=== PATIENT | female | born 1935 | race Caucasian/White ===

== ENCOUNTER 2018-04-14 12:15 | Emergency (ER) | payer OTHER, MEDICARE ==
[~2018-04-14] VITALS: Ht 160 cm; Wt 47.2 kg
[~2018-04-14 12:15] MED LIST: BRINTELLIX20 MG PO; CLOTRIMAZOLE10 MG MM; FOLGARD TABLET1 EAC1 PO; GABAPENTIN 100100 MG PO; HYDROCODON-ACE1 EAC7 PO; HYDROCODONE-AP1 EAC6 PO; LEVOTHYROXIN0.088 MG PO; LOPRESSOR25 PO; MULTIPLE VITAM1 EACH PO; OMEPRAZOLE20 M2 PO; TUMS PO; XANAX 0.25 MG0.25 MG PO
[2018-04-14 12:40] LABS: URINE BILIRUBIN NEGATIVE (Negative); URINE BLOOD 1+ (Negative); URINE CLARITY CLEAR; URINE COLOR YELLOW; URINE GLUCOSE-RANDOM* NEGATIVE (Negative); URINE KETONES NEGATIVE (Negative); URINE LEUKOCYTES-REFLEX NEGATIVE (Negative); URINE NITRITE-REFLEX NEGATIVE (Negative); URINE PROTEIN (DIPSTICK) NEGATIVE (Negative); URINE UROBILINOGEN 0.2 E.U./dl (0.2-1.0)
[2018-04-14 12:54] LABS: BACTERIA-REFLEX None Seen /HPF (None Seen); CASTS None Seen /LPF (None Seen); CRYSTALS None Seen /LPF (None Seen); SQUAMOUS 0-3 Few /LPF (0-3); URINE RBC 3-10 Few /HPF (0-2); URINE WBC-REFLEX None Seen /HPF (0-5)
[2018-04-14 13:32] LABS: HEMATOCRIT 33.5 % (37.0-47.0); HEMOGLOBIN 11.8 gm/dL (12.0-15.0); MCH 34.9 pg (26.0-34.0); MCHC 35.2 g/dL (28.0-37.0); PLATELET COUNT 325 thou/uL (150-400); RBC 3.38 mil/uL (4.20-5.00); WBC 7.5 thou/uL (4.0-11.0)
[2018-04-14 13:41] LABS: CREATININE 0.9 mg/dL (0.6-1.0); POTASSIUM 4.4 mmol/L (3.5-5.1)
[2018-04-14 14:00] LABS: ABSOLUTE NEUTROPHILS 5.6 thou/uL (1.4-8.2); ATYPICAL LYMPHS 4 %; NUCLEATED RBCS 1 /100WBC
== END 2018-04-14 14:10 | disposition home or self-care (01) ==
LOC: ER 12:15
PROVIDERS: Student in an Organized Health Care Education/Training Program
DX: R30.0 Dysuria (principal); I10 Essential (primary) hypertension; Z88.1 Allergy status to other antibiotic agents; Z88.2 Allergy status to sulfonamides; Z88.8 Allergy status to other drugs, medicaments and biological substances

== ENCOUNTER 2018-06-02 22:46 | Inpatient (IN) | payer OTHER, MEDICARE ==
[~2018-06-02] VITALS: Ht 165.1 cm; Wt 40.8 kg
--- NOTE | ~2018-06-02 | EKG ---
[address] [address] ELECTROCARDIOGRAM REPORT Name: PAULJUAN SETHI Room #: 430-P [facility] IN .R.#: [id number] Admission: 06/03/18 Attend Phys: Xander Richey MD Discharge: Date of : 31 Report #: [id number] THIS REPORT FOR: //name// [facility] ED Test Date: 2018-06-02 Test Time: 23:26:33 Pat Name: JUAN SHRESTHA Department: Room: [facility] Gender: F Online Producer: LANDY : 1935 Requested By: Xander Richey Order Number: [id number] MD: Carlos Roberts Measurements Intervals Devers Rate: 93 P: 73 NM: 152 QRS: 47 QRSD: 93 T: 52 QT: 381 QTc: 474 Interpretive Statements Sinus rhythm No significant abnormality Compared to ECG 03/17/2016 17:22:22 No significant changes Electronically Signed On 06-04-2018 8:44:37 WORKDAY CONSULTANT by Carlos Roberts [email or web address] <ELECTRONICALLY SIGNED> By: Carlos Roberts MD, [facility] 06/04/18 0844 25 Carlos Roberts MD, [facility] /EPI
--- NOTE | ~2018-06-02 | HC ---
[facility] [place] [address] CONSULTATION Name: PAULJOSSIEJUAN C Room #: 430-P ADM IN M.R.#: [id number] Admission: 06/03/18 Attend Phys: Xander Richey MD Discharge: Date of : 33 Report #: [id number] THIS REPORT FOR: //name// CC: FAM unknown Xander Richey CHIEF COMPLAINT: Right proximal femur fracture. HISTORY OF PRESENT ILLNESS: This frail 83-year-old female is very, very hard of hearing and therefore difficult to communicate with. It is unclear what her level of activity and independence may have been prior to this point. She apparently fell, injuring the right hip. X-rays reveal a nondisplaced fracture extending from the greater trochanter down toward the intertrochanteric region. It is difficult to determine if this is complete or partial, but appears to be nondisplaced. No other fractures are identified. A CT scan of the pelvis and hip are pending at this time. I have attempted to discuss this with the patient, but with great difficulty as she is so hard of hearing that we really cannot communicate effectively. It is unclear to me what her level of ambulation activity has been prior to this. At this point, she is comfortable when resting, but is uncomfortable with movement of the right hip or palpation over the right hip. The remainder of the objective exam seems to be normal. X-ray reveals a fracture, which is nondisplaced involving the greater trochanter extending slightly distally and medially. I have tried to contact with the patient's family and we will discuss treatment options. At this point, the fracture appears to be stable and nonsurgical management may be a reasonable option. I would like to see CT scan to see what the extent of the fracture may be. If there is extension toward the medial cortex, which might be unstable, then consideration of TFN nail fixation would be appropriate. I will follow her and consider surgery tomorrow if necessary. <ELECTRONICALLY SIGNED> By: Jc Coon MD 06/04/18 1150 [id number] Jc Coon MD /nt
[2018-06-02 22:55] VITALS: BP 132/69
[2018-06-03 03:19] VITALS: BP 130/66
[2018-06-03 03:30] VITALS: BP 130/66
[2018-06-03 04:21] VITALS: BP 131/78
[2018-06-03 04:24] LABS: HEMATOCRIT 34.6 % (37.0-47.0); HEMOGLOBIN 11.5 gm/dL (12.0-15.0); MCH 32.9 pg (26.0-34.0); MCHC 33.3 g/dL (28.0-37.0); RBC 3.5 mil/uL (4.20-5.00); RDW 14.3 % (10.5-14.5)
[2018-06-03 04:29] LABS: CALCIUM 8.7 mg/dL (8.5-10.1); CREATININE 1.1 mg/dL (0.6-1.0); POTASSIUM 4.3 mmol/L (3.5-5.1)
[2018-06-03 06:19] LABS: URINE BILIRUBIN NEGATIVE (Negative); URINE BLOOD 2+ (Negative); URINE CLARITY CLEAR; URINE COLOR YELLOW; URINE GLUCOSE-RANDOM* NEGATIVE (Negative); URINE KETONES NEGATIVE (Negative); URINE NITRITE-REFLEX NEGATIVE (Negative); URINE PROTEIN (DIPSTICK) NEGATIVE (Negative); URINE UROBILINOGEN 0.2 E.U./dl (0.2-1.0)
[2018-06-03 06:20] LABS: URINE LEUKOCYTES-REFLEX 1+ (Negative)
[2018-06-03 06:31] LABS: AMORPHOUS URATES Moderate /LPF (None Seen); BACTERIA-REFLEX 1-9 Few /HPF (None Seen); CASTS None Seen /LPF (None Seen); SQUAMOUS None Seen /LPF (0-3); URINE RBC 3-10 Few /HPF (0-2); URINE WBC-REFLEX 6-15 Few /HPF (0-5)
[2018-06-03 07:49] VITALS: BP 147/69
[2018-06-03 16:39] VITALS: BP 124/62
[2018-06-03 20:00] VITALS: BP 150/84
[2018-06-04 04:50] VITALS: BP 156/90
[2018-06-04 06:27] LABS: HEMATOCRIT 34.1 % (37.0-47.0); HEMOGLOBIN 11.8 gm/dL (12.0-15.0); MCH 33.9 pg (26.0-34.0); MCHC 34.5 g/dL (28.0-37.0); MCV 98.3 fL (80.0-100.0); RBC 3.47 mil/uL (4.20-5.00); RDW 13.9 % (10.5-14.5); WBC 6.5 thou/uL (4.0-11.0)
[2018-06-04 06:40] LABS: CALCIUM 8.3 mg/dL (8.5-10.1); CREATININE 0.9 mg/dL (0.6-1.0); POTASSIUM 3.9 mmol/L (3.5-5.1)
[2018-06-04 07:30] VITALS: BP 157/80
[2018-06-04 19:27] VITALS: BP 143/63
[2018-06-05 03:51] VITALS: BP 131/64
[2018-06-05 06:08] LABS: HEMATOCRIT 33.6 % (37.0-47.0); HEMOGLOBIN 11.4 gm/dL (12.0-15.0); MCH 33.4 pg (26.0-34.0); MCHC 33.8 g/dL (28.0-37.0); MCV 98.7 fL (80.0-100.0); PLATELET COUNT 301 thou/uL (150-400); RBC 3.41 mil/uL (4.20-5.00); RDW 14.3 % (10.5-14.5); WBC 6.8 thou/uL (4.0-11.0)
[2018-06-05 06:24] LABS: CALCIUM 7.9 mg/dL (8.5-10.1); CREATININE 0.7 mg/dL (0.6-1.0)
[2018-06-05 07:29] VITALS: BP 131/72
[2018-06-05 08:36] LABS: ABSOLUTE NEUTROPHILS 4.5 thou/uL (1.4-8.2)
[2018-06-05 08:37] LABS: ANISOCYTOSIS SLIGHT; ATYPICAL LYMPHS 3 %; BURR CELLS OCCASIONAL; POIKILOCYTOSIS SLIGHT
[2018-06-05 15:34] VITALS: BP 136/66
[2018-06-05 20:00] VITALS: BP 133/65
[2018-06-06 04:30] VITALS: BP 140/72
[2018-06-06 06:07] LABS: ALBUMIN 2.5 g/dL (3.4-5.0); CALCIUM 7.7 mg/dL (8.5-10.1); CREATININE 0.9 mg/dL (0.6-1.0); POTASSIUM 4.2 mmol/L (3.5-5.1)
[2018-06-06 08:02] VITALS: BP 147/74
[2018-06-06] MEDS ORDERED: TRAMADOL 50 MG50 MG PO (09:33)
== END 2018-06-06 16:16 | DRG 682 ==
LOC: ER 22:46 → 4E 06-03 02:05 → EROBS 06-03 02:05 → 4E 06-03 03:59
PROVIDERS: Hospitalist; Internal Medicine; Nurse Practitioner Acute Care
DX: N17.0 Acute kidney failure with tubular necrosis (principal); S72.111A Displaced fracture of greater trochanter of right femur, initial encounter for closed fracture; E87.1 Hypo-osmolality and hyponatremia; E46 Unspecified protein-calorie malnutrition; Z68.1 Body mass index [BMI] 19.9 or less, adult; F32.9 Major depressive disorder, single episode, unspecified; F41.9 Anxiety disorder, unspecified; M62.84 Sarcopenia; K21.9 Gastro-esophageal reflux disease without esophagitis; I12.9 Hypertensive chronic kidney disease with stage 1 through stage 4 chronic kidney disease, or unspecified chronic kidney disease; N18.9 Chronic kidney disease, unspecified; H91.90 Unspecified hearing loss, unspecified ear; E03.9 Hypothyroidism, unspecified; W18.30XA Fall on same level, unspecified, initial encounter; Y93.89 Activity, other specified; Y92.89 Other specified places as the place of occurrence of the external cause; Y99.8 Other external cause status; Z90.49 Acquired absence of other specified parts of digestive tract; Z98.891 History of uterine scar from previous surgery; Z79.899 Other long term (current) drug therapy; Z88.1 Allergy status to other antibiotic agents; Z88.2 Allergy status to sulfonamides; Z88.8 Allergy status to other drugs, medicaments and biological substances
CPT/HCPCS: 10084

== ENCOUNTER 2018-06-06 13:29 | Inpatient (IN) | payer OTHER, MEDICARE ==
[~2018-06-06] VITALS: Ht 165.1 cm; Wt 49.7 kg
--- NOTE | ~2018-06-06 | PLAN ---
[facility] [place] [address] REHAB UNIT PLAN OF CARE Name: JUAN SHRESTHA Barbara Room #: 505-P ADM IN M.R.#: [id number] Admission: 06/06/18 Attend Phys: Jc Bueno MD Discharge: Date of : 33 Report #: [id number] THIS REPORT FOR: //name// CC: Jc Bueno [facility] unknown DATE OF SERVICE: 06/09/2018 The patient was seen earlier this morning. She is very hard of hearing. Temperature 36.7, pulse 74, respirations 16, blood pressure 124/70. No calf swelling. She is working in therapies with transfers, min assist. Gait, min assist 20 feet with a front-wheeled walker. She is allowed weightbearing as tolerated. In occupational therapy, she is max assist for lower body dressing. In speech therapy, she does have nncp-iw-gsiolyyd comprehensive deficits. She also moderate cognitive deficits. ASSESSMENT: 1. Right hip fracture, comminuted being handled nonsurgically. 2. Hyponatremia. 3. Dizziness with apparent benign positional postural vertigo. 4. Hypertension. 5. Icapi-yi-zohdntr renal insufficiency. 6. Sarcopenia. 7. Protein-calorie malnutrition. 8. Hard of hearing. PLAN: The overall plan of care is based on the preadmission screen, post-admission physician evaluation and information garnered from therapy assessments. 1. Estimated length of stay is probably 2-3 weeks. 2. Medical prognosis is reasonably good. 3. Anticipated interventions includes the interdisciplinary acute inpatient rehabilitation program with PT, OT and speech working with her rehab nursing assisting regarding medication management, skin care prophylaxis, bowel and bladder issues and nursing education. Case management is involved as well as the interdisciplinary acute rehabilitation team and the end user consultant physicians. 4. Anticipated functional outcomes would be for the patient to become modified independent with transfers, mobility and ADLs utilizing a walker. Also to improve as far as cognition. 5. Discharge destination would be for her to get back to her home setting. She does have supportive family that we will need to increase their involvement. 6. Expected therapy by discipline includes PT, OT and speech 1 hour per day [address] [address] REHAB UNIT PLAN OF CARE Name: JUAN SHRESTHA Room #: 505-P [facility] IN [facility].#: [id number] Admission: 06/06/18 Attend Phys: Jc Bueno MD Discharge: Date of : 33 Report #: [id number] each five days a week throughout the duration of the acute inpatient rehabilitation stay. By: 1320 0037 Jc Bueno MD /nt
[~2018-06-06 13:29] MED LIST changes: +TRAMADOL 50 MG50 MG PO
--- NOTE | 2018-06-06 18:06 | NUR ---
REPORT RECEIVED FROM KLEBER DALY. PATIENT ARRIVED TO UNIT APPROX 1630. PATIENT A/O X4. [place]. ANXIOUS. C/O PAIN WITH MOVEMENT IN RIGHT HIP. DENIES PAIN AT REST. TRANSFERED X2 ASSIST PIVOT WC<>BSC. PATIENT ATE DINNER IN DINING ROOM. PATIENT'S DAUGHTER JIM AT BEDSIDE. ADMISSION HISTORY AND ASSESSMENT COMPLETED BY MALIKA BREWSTER. MEDICATION ORDERS FAXED TO PHARMACY, VERIFIED AGAINST DISCHARGE SUMMARY. CONSULTS CALLED. FALL PRECAUTIONS IN PLACE. PATIENT ROUNDED ON HOURLY. WILL CONTINUE TO MONITOR.
[2018-06-06 19:00] VITALS: BP 121/74
--- NOTE | 2018-06-07 00:24 | NUR ---
PT ALERT AND ORIENTED X 4, FORGETFUL. TRANSFERRED TO BED AT HS WITH MAX ASSIST X 1. PT VERY ANXIOUS WITH TRANSFERS. PT C/O PAIN IN HER RIGHT KNEE. TRAMADOL GIVEN AT HS AND PT SLEEPING UPON REASSESSMENT. BED ALARM ON FOR SAFETY. PT APPEARS TO BE SLEEPING ON HOURLY ROUNDS.
[2018-06-07 04:33] LABS: CALCIUM 8.3 mg/dL (8.5-10.1); CREATININE 0.8 mg/dL (0.6-1.0); POTASSIUM 4.3 mmol/L (3.5-5.1)
[2018-06-07 05:53] LABS: HEMATOCRIT 34.8 % (37.0-47.0); HEMOGLOBIN 11.9 gm/dL (12.0-15.0); MCH 33.6 pg (26.0-34.0); MCHC 34.2 g/dL (28.0-37.0); MCV 98.2 fL (80.0-100.0); RBC 3.54 mil/uL (4.20-5.00); RDW 13.8 % (10.5-14.5); WBC 6.6 thou/uL (4.0-11.0)
[2018-06-07 07:30] VITALS: BP 144/84
--- NOTE | 2018-06-07 09:45 | NUR ---
ASSUMED CARE OF PT AT 0715. PT IS A&OX4 WITH FORGETFULNESS. IS ANXIOUS WITH TRANSFERRING, TENSES UP, GRABS ONTO CAREGIVER FIRMLY, & RESIST. PT STATED, "IT'S BECAUSE OF THE PAIN". THRERAPUETIC COMMUNICATION PROVIDED. PT REASSURED THAT [facility]RTS HAS FIRM MASS SPECTROSCOPIST, IS THERE TO HELP, TO RELAX, & TAKE HER TIME. AFTER A TIME PT RELAXES, STRAIGHTENS UP, TAKES STEPS & DOES WELL. NEEDS REASSURANCE & PATIENCES. TRANSFERS WELL WITH 1 ASSIST & GB TO BEDSIDE COMMODE. THIS NURSE FEELS SAFER WITH 2 ASSIST D/T TO ANXIETY. FALL PRECAUTIONS & HOURLY ROUNDING CONTINUED. PT IS STABLE. IS ON ROOM AIR. PT REPORTS PAIN IN RLE WITH MOVEMENT THAT IS BEING MANAGED WITH PAIN MEDS. LABS & VITALS REVIEWED. PT IS CURRENTLY WORKING WITH PT. WILL CONTINUE TO MONITOR.
--- NOTE | 2018-06-07 12:21 | NUR ---
team meeting, discussed dcp, recommendations re-team . [facility] for cognitive deficits. pt was living in assisted living at [place], per pt manage own medication, facility provided meals, uses walker and cane. no steps has to do. skips lunch because it is to close to breakfast. no longer drives vehicle.
[2018-06-07 20:44] VITALS: BP 132/59
--- NOTE | 2018-06-08 00:19 | NUR ---
PT ALERT AND ORIENTED X 4, FORGETFUL. PT VERY ANXIOUS TONIGHT. OBSESSING OVER TV NOT WORKING RIGHT AND IT IS WORKING FINE. UP TO BSC WITH ASSIST X 1-2. PT YELLS OUT AT TIMES ESPECIALLY WHEN TRANSFERRING. C/O PAIN IN RLE. TRAMADOL GIVEN AT HS. PT REQUESTING XANAX FOR ANXIETY. RADHA BARBOUR NP NOTIFIED WITH ORDER RECEIVED FOR ONE TIME DOSE. MED GIVEN ORDERED. BED ALARM ON FOR SAFETY. PT CHECKED ON HOURLY ROUNDS.
[2018-06-08 07:21] VITALS: BP 139/70
--- NOTE | 2018-06-08 07:53 | NUR ---
ASSUMED CARE OF PT AT 0715, A&0X3-4, FORGETFUL. REPORTS OF 2PERSON MAX ASSIST. REPORTS OF EXTREME ANXIETY PRIOR SHIFT. WILL ASK FOR XANAX TO BE AVAILABLE NEEDED OR BID. RA, DIMINISHED LS, ENCOURAGED DEEP SLOW INHALATIONS/EXHALATIONS. SHOWED HER HOW TO TO USE CALL LIGHT WITH SUCCESSFUL RETURN DEMO. MED FOR ANXIETY AND PAIN MEDICATION PROPHYALACTICALLY FOR PT. ENCOURAGED PT TO USE CALL LIGHT FOR ANY NEEDS
[2018-06-08 20:15] VITALS: BP 121/61
--- NOTE | 2018-06-09 01:08 | NUR ---
ASSUMED CARE OF PT AT 1915. PT ALERT AND ORIENTED X4, VERY ANXIOUS BUT COOPERATIVE. CALLS OUT WHEN MOVED. PIVOT TRANSFERRED TO WHEELCHAIR THEN TO TOILET. C/O HIP PAIN, RELIEVED WITH TRAMADOL. HAS APPEARED TO BE SLEEPING WHEN CHECKED ON HOURLY ROUNDS. FALL PRECAUTIONS IN PLACE.
[2018-06-09 09:18] VITALS: BP 124/70
--- NOTE | 2018-06-09 10:07 | NUR ---
ASSUMED CARE AT 0700. PATIENT ALERT AND ORIENTED X3. PATIENT VERY [place]. PATIENT AUTOMOTIVE TIRE TESTER ARE EQUAL. PATIENT IS WBAT ON LEFT LEG. PATIENT IS VERY ANXIOUS ABOUT TRANSFERS. PATIENT IS UP WITH ASSIST OF 1-2 STAFF WITH WALKER AND GAIT BELT TO THE BATHROOM. FALL AND SAFETY PROTOCOLS IN PLACE. DENIES PAIN AT THIS TIME. CONTINUES TO PROGRESS SLOWLY TOWARDS D/C GOALS. WILL CONTINUE TO MONITER.
[2018-06-09 20:15] VITALS: BP 124/65
--- NOTE | 2018-06-10 00:57 | NUR ---
PT ALERT AND ORIENTED X 4, FORGETFUL. UP TO BSC WITH ASSIST X 1. PT C/O GENERALIZED PAIN. TRAMADOL GIVEN AT HS. BED ALARM ON FOR SAFETY. PT CHECKED ON HOURLY ROUNDS.
[2018-06-10 07:35] VITALS: BP 114/68
--- NOTE | 2018-06-10 09:35 | NUR ---
ASSUMED CARE AT 0700. PATIENT IS ALERT AND ORIENTEDX3. PATIENT IS [place]. PATIENT IS WBAT ON LEFT, FULL WEIGHT BEARING ON RIGHT. LUNGS ARE CLEAR. ABD IS SOFT WITH BSX4. PATIENT IS UP WITH ASSIST OF 1 TO W/C TO BATHROOM. PATIENT USES GRAB BARS APPROPIATELY. FALL AND SAFETY PROTOCOLS IN PLACE. DENIES ANY PAIN AT THIS TIME. PATIENT CONTINUES TO PROGRESS TOWARDS D/C GOALS SLOWLY. WILL CONTINUE TO MONITER.
--- NOTE | 2018-06-10 17:01 | HC ---
[facility] [place] [address] CONSULTATION Name: JUAN SHRESTHA Room #: 505-P [facility] IN M.R.#: [id number] Admission: 06/06/18 Attend Phys: Jc Bueno MD Discharge: Date of : 33 Report #: [id number] THIS REPORT FOR: //name// CC: Jc Bueno [facility] unknown DATE OF SERVICE: 06/09/2018 NEUROBEHAVIORAL STATUS EXAMINATION ATTENDING PHYSICIAN: Jc Bueno MD POLITICAL ADVISOR: Black Burton, PhD CLINICAL PRESENTATION: The patient is an 83-year-old female, admitted to the rehabilitation unit at [facility] for a comprehensive inpatient rehabilitation program to improve functional mobility, activities of daily living and self-care and mental status secondary to deficits from a right hip fracture. She carries diagnoses that include hyponatremia, dizziness/apparent benign positional postural vertigo, hypertension, hypothyroidism, functional mobility and activities of daily living deficits, urinary frequency and dysuria, acute renal insufficiency on chronic kidney disease, sarcopenia, protein-calorie malnutrition and gastroesophageal reflux disease. A complete description of her medical condition and history along with medications can be found in her medical record. Neuropsychological consultation was requested to provide assistance in the assessment of cognitive and emotional status and to provide recommendations and services. The patient reports having complete recall of events surrounding her fall and not having hit her head. She indicates getting dizzy and subsequently unable to hold on to a door frame to maintain balance when she fell. Her residence has been in an assisted living placement for the last several years. The patient has 3 children. One child lives within the [place] area. She is a high school graduate and was primarily a homemaker throughout her life. TECHNIQUES UTILIZED: Clinical interview, review of medical records, staff consultation and behavioral observation, mini mental status exam 2 standard version and clock drawing. EXAMINATION FINDINGS: The patient was alert and cooperative with the assessment. She accurately described events surrounding her admission. There is no evidence of aphasia. Her thoughts are logical and goal oriented. There is no evidence of thought disorder. She is severely hard of hearing. Her mood is variabie with increased irritability. [facility] [address] [place] [address] CONSULTATION Name: JUAN SHRESTHA Room #: 505-P [facility] IN M.R.#: [id number] Admission: 06/06/18 Attend Phys: Jc Bueno MD Discharge: Date of : 33 Report #: [id number] She reports anxiety and concern about the well-being of her daughter. Apparently, her daughter has an alcohol abuse disorder and is unreliable. The patient acknowledges subjective depression and anxiety. She also reports difficulty with sleep and has had a weight loss, although she reports her appetite is within normal limits. Her performance on the MMSE 2 brief version was at the 3rd percentile, which is in the borderline range. She was 3/3 for initial registration, 5/5 for orientation to time, 4/[address], and 0/3 for immediate recall of 3 items after a brief time delay and distraction. Her performance on the MMSE 2 standard version was in the mild range of impairment with a raw score of 23, T score of 36 and percentile rank of 8. She was 2/5 for serial 7's, 2/2 for naming, 1/1 for repetition, 3/3 for auditory comprehension, 1/1 for ability to read and follow a single command. She could write a sentence and copy a design. Clock drawing was within normal limits. The patient is showing some mild deficits in immediate recall and sustained concentration. She is severely hard of hearing, which may affect overall cognitive functioning. Additionally, her mood appears irritable and depressed. DIAGNOSTIC IMPRESSION: Neurocognitive disorder (unspecified) -- extent to be determined with intermittent irritability likely in the mild to moderate range. Unspecified anxiety disorder with depression. RECOMMENDATIONS: Her mood is depressed and anxiety regarding her recovery and the well being of her daughter is elevated. The patient may benefit from use of an antidepressant medication rather than alprazolam. Additionally, she is taking gabapentin, and along with alprazolam can have an adverse effect on cognition. The use of relaxation techniques, written compensatory strategies and hearing augmentation will also lessen sources of anxiety. Thank you very much for allowing me to provide the consultation on this patient. <ELECTRONICALLY SIGNED> By: Black Burton, PhD 06/10/18 1701 1551 21 Black Burton, PhD /nt
[2018-06-10 19:32] VITALS: BP 111/55
--- NOTE | 2018-06-11 03:19 | NUR ---
ASSUMED CARE OF PT AT 1915. PT ALERT AND ORIENTED X4. VERY ANXIOUS THROUGH THE EVENING, ESPECIALLY WHEN TRANSFERRING TO BSC. 2 STAFF MEMBERS PRESENT FOR TRANSFER DUE TO PT ANXIETY. C/O PAIN X1, RELIEVED WITH PO TRAMADOL. HAS APPEARED TO BE SLEEPING WHEN CHECKED ON HOURLY ROUNDS. BED ALARM ON.
[2018-06-11 05:34] LABS: HEMATOCRIT 35.2 % (37.0-47.0); HEMOGLOBIN 11.9 gm/dL (12.0-15.0); MCH 33.4 pg (26.0-34.0); MCHC 33.7 g/dL (28.0-37.0); MCV 99.1 fL (80.0-100.0); PLATELET COUNT 425 thou/uL (150-400); RBC 3.55 mil/uL (4.20-5.00); RDW 14.3 % (10.5-14.5); WBC 5.7 thou/uL (4.0-11.0)
[2018-06-11 05:35] LABS: CALCIUM 8.6 mg/dL (8.5-10.1); CREATININE 0.9 mg/dL (0.6-1.0); POTASSIUM 4.4 mmol/L (3.5-5.1)
[2018-06-11 08:08] LABS: ABSOLUTE NEUTROPHILS 3.2 thou/uL (1.4-8.2)
[2018-06-11 09:00] VITALS: BP 118/79
--- NOTE | 2018-06-11 18:30 | NUR ---
PT IS ALERT XS 4 BUT VERY HARD OF HEARING. GETS UP TO BEDSIDE COMMODE. WITH ASSIST XS 1. HAD LARGE BOWEL MOVEMENT TODAY. SOFT FORMED BROWN. NO PAIN OR RESP DISTRESS AT TIME.
[2018-06-11 19:32] VITALS: BP 120/66
--- NOTE | 2018-06-12 04:53 | NUR ---
ASSUMED CARE OF PT APPROX 2030HRS. PT A&O X4 ABLE TO MAKE BASIC NEEDS KNOWN. PT IS [place]. C/O RLE PAIN EFFECTIVELY CONTROLLED VIA PRN TRAMADOL PRN. PT CALM AND COOPERATIVE. MEDS WHOLE PO WITH THIN LIQUIDS. CONT OF B&B ASSIST X1 WITH TRANSFERS. SCDS ON. RA.
--- NOTE | 2018-06-12 15:26 | NUR ---
ASSUMED CARE AT 0700. PATIENT IS ALERT AND ORIENTED X3. PATIENT IS [place]. ANXIOUS, C/O PAIN WHEN SHE STANDS UP BUT DENIES PAIN WHEN SHE LAYS DOWN. PATIENT IS WBAT ON LEFT, FULL WEIGHT BEARING ON RIGHT. LUNGS ARE CLEAR. ABD IS SOFT WITH BSX4. HAD MODERATE FORMED BM TODAY. APPETITE FAIR ATE 50% FOR EACH MEALS. PATIENT IS UP WITH ASSIST OF 1 TO W/C TO BATHROOM. PATIENT USES GRAB BARS APPROPIATELY. OFFERED SUPPORTIVE CARE. ENCOURAGED PT TO VOICE HER NEEDS. TOOK MEDS WITHOUT DIFFICULTY. FALL AND SAFETY PROTOCOLS IN PLACE. DENIES ANY PAIN AT THIS TIME. PATIENT CONTINUES TO PROGRESS TOWARDS D/C GOALS SLOWLY. WILL CONTINUE TO MONITOR.
[2018-06-12 19:49] VITALS: BP 119/71
--- NOTE | 2018-06-13 02:59 | NUR ---
PT ASSESSMENT COMPLETED AND VSS. MEDS GIVEN ORDERED AND WELL TOLERATED. FALL PRECAUTIONS IN PLACE. UP TO BSC WITH ASST/GAIT/WALKER. VOIDING MODERATE AMOUNT OF URINE. ANXIETY MEDICATION AT BEDTIME WORKING WELL. WILL CONTINUE TO MONITOR FREQUENTLY.
[2018-06-13 07:30] VITALS: BP 127/69
--- NOTE | 2018-06-13 15:51 | NUR ---
ASSUMED CARE AT APPROX 0715. PATIENT A/O X4. ANXIOUS. NEEDING FREQUENT QUES AND REDIRECTION. UP X1 ASSIST. MEDICATED FOR PAIN PRIOR TO THERAPY. VSS. PATIENT FORGETFUL, UNABLE TO RECALL CORRECT MED TIMES OR DOSE OF AFTERNOON MEDS, PATIENT STATES SHE WAS MANAGING MEDICATION HERSELF PRIOR TO ADMISSION, DAUGHTER DORIS CONFIRMED THIS. PATIENT STATED SHE WANTED DORIS TO BE PRIMARY CONTACT REGARDING DISCHARGE PLAN. FALL PRECAUTIONS IN PLACE. WILL CONTINUE TO MONITOR.
[2018-06-13 19:11] VITALS: BP 128/64
--- NOTE | 2018-06-14 01:42 | NUR ---
assumed care at approx 1900 evening 06/13. pt lying in bed with head of bed elevated dozing off and on at change of shift.pt up to bathroom with 1 assist before hs. pt given xanax per her request and pt appears to be sleeping soundly with hourly rounding checks. bed alarm on and call light in reach. will continue to monitor.
[2018-06-14 07:40] VITALS: BP 132/77
--- NOTE | 2018-06-14 10:03 | NUR ---
ASSUMED PT CARE AT 0700. ASSESSED PT AT 0740. PT LYING IN BED AWAKE. DENIES PAIN AT THIS TIME IF NOT MOVING. ALERT/ORIENTED X4, EXTREMELY HARD OF HEARING. ASSESSMENT IS CHARTED. NO NEW CONCERNS AT THIS TIME. WILL CONTINUE WITH PLAN OF CARE.
--- NOTE | 2018-06-14 12:38 | NUR ---
team meeting, recommendation,: 06/22/18 discuss with pt and family rt assisted living vs private duty. possible 09/01 initial supervision, medication management.
--- NOTE | 2018-06-14 13:23 | H ---
[facility] [place] [address] HISTORY AND PHYSICAL Name: PAULJOSSIEJUAN C Room #: 505-P ADM IN M.R.#: [id number] Admission: 06/06/18 Attend Phys: Jc Bueno MD Discharge: Date of : 33 Report #: [id number] THIS REPORT FOR: //name// CC: Jc Bueno [facility] unknown DATE OF SERVICE: 06/06/2018 HISTORY AND PHYSICAL/POST-ADMISSION PHYSICIAN EVALUATION: HISTORY OF PRESENT ILLNESS: The patient is an 83-year-old white female previously living in independent living apartment when she was getting something from her closet felt dizzy and fell. She was admitted to [facility] on 06/03/2018. She was noted to have a right hip fracture, noted originally to be a proximal femur fracture. The x-ray revealed a nondisplaced fracture involving the greater trochanter extending slightly distally and medially toward the intertrochanteric region. CT was obtained by Orthopedics and the patient is currently being handled nonsurgically with the hope to try to avoid surgery, but understand the possibility of fracture displacement. The patient's course has further been complicated by hyponatremia. She was given saline. Urine osmolality, monitored. Sodium was 130, currently 131. She also is noted to have the dizziness, which is thought to most likely be benign positional vertigo and she has had meclizine available p.r.n. She is being monitored regarding hypertension with home medications as well as her hypothyroidism. She has not been admitted for an acute in-hospital inpatient rehabilitation stay. PAST MEDICAL HISTORY: Includes anxiety, depression, hypertension, sections, hypothyroidism, cholecystectomy. ALLERGIES: CLARITHROMYCIN, ERYTHROMYCIN BASE, LISINOPRIL, SULFA. MEDICATIONS: Please see the full medication listing. This includes vitamins, herbals, and supplements. SOCIAL HISTORY: Lives alone, independent living, was independent in ADLs, did her own laundry, meals and cleaning are provided at the facility. She did utilize a 4-wheeled walker premorbidly. Has involved in supportive daughter. REVIEW OF SYSTEMS: No current complaints of chest pain, shortness of breath or abdominal discomfort. Denies fever, chills. No constipation, no nausea. She does have some right hip discomfort as expected. Dizziness appears to be improving. No headache, numbness, tingling. No psychiatric issues have been noted, although she does have the prior history of depression. HABITS: Nonsmoker, limited past history of ETOH usage. [facility] [address] [place] [address] HISTORY AND PHYSICAL Name: JUAN SHRESTHA Room #: 505-P [facility]#: [id number] Admission: 06/06/18 Attend Phys: Jc Bueno MD Discharge: Date of : 33 Report #: [id number] PHYSICAL EXAMINATION: GENERAL: The patient is a pleasant, small statured rather thin 83-year-old white female in no obvious distress. She is somewhat hard of hearing. HEENT: Otherwise appeared to be benign. Cranial nerves are grossly intact. VITAL SIGNS: Temperature 98.8, pulse 99, respirations 20, blood pressure 121/74. Facies are symmetric. CHEST: Sounded clear to auscultation. CARDIOVASCULAR: Regular rate and rhythm. ABDOMEN: Bowel sounds positive, nontender. GENITOURINARY AND RECTAL: Deferred. EXTREMITIES: She has functional range of motion of both upper extremities. Strength is grade 4-/5. DTRs are trace to 1. Right hip. She does have some discomfort with gentle attempted range of motion. There is no focal calf swelling. Strength is probably a grade 4- to 3+/5 proximally and more of a grade 4- distally. Left lower extremity revealed functional range of motion, strength is grade 4-/5. Tone is intact. No distal sensory decrease. Sit to stand has been max assist with gait 20 feet mod assist with a front-wheeled walker. ASSESSMENT: This is an 83-year-old white female with the following problem list: 1. Right hip fracture, comminuted being handled nonsurgically. 2. Hyponatremia. Given saline, osmolality was checked. Internal Medicine assisting. 3. Dizziness/apparent benign positional postural vertigo. She has been on meclizine and we are continuing to monitor in this regard. 4. Hypertension with current management. 5. Hypothyroidism. 6. Functional mobility and activities of daily living deficits. 7. Urinary frequency with dysuria. 8. Noted acute renal insufficiency on chronic kidney disease. Noted to likely be some renal clearing of medications, which exacerbate dizziness. Hydration continuing. Geriatric service is involved. 9. Sarcopenia. She scores positive on the SARC-F screen. Encouraging high protein supplements. 10. Protein-calorie malnutrition. On supplements in this regard. 11. The Gerontology service is also assisting regarding the patient's dizziness and trying to decrease multiple medications that can contribute to that. 12. Gastroesophageal reflux disease. Gerontology recommended stopping the PPI, which can lead to atypical fracture and osteoporosis. PLAN: The patient is admitted for acute in-hospital inpatient rehabilitation. From a post-admission physician evaluation perspective, there are no relevant changes since the preadmission screening. Please see the above review of prior and current medical and functional conditions and comorbidities. Please see the [facility] [address] [place] [address] HISTORY AND PHYSICAL Name: JUAN SHRESTHA Room #: 505-P [facility] IN ..#: [id number] Admission: 06/06/18 Attend Phys: Jc Bueno MD Discharge: Date of : 33 Report #: [id number] previous and current functional status. As far as risk of complications, the patient has multiple medical comorbidities as noted above. We need to watch her as far as the hip healing as well as she is at risk for possible displacement. Hopefully, conservative management will be successful for her. The initial plan of care involves the interdisciplinary acute inpatient rehabilitation program with goal of maximizing the patient's functional independence, so she can hopefully return back to her prior living situation. Measurable functional goals would be for her to become modified independent with transfers, mobility and ADLs at the walker level. Prognosis is reasonably good with estimated length of stay probably the next 10-14 days or so. Potential barriers would include her multiple medical comorbidities and decreased functional status. The patient meets diagnostic criteria for an acute in-hospital inpatient rehabilitation stay. She meets medical necessity criteria and we will have the fashion consultant physicians continue to follow while she is on the rehab thomas. She does have the tolerance for therapies and has appropriate discharge goals back to the home setting. <ELECTRONICALLY SIGNED> By: Jc Bueno MD 06/14/18 1323 [id number] Jc Bueno MD /nt
--- NOTE | 2018-06-14 14:08 | NUR ---
Nutrition: pt seen due to consult received to assure adequate intake. RD nutrition assessment completed 06/13. Po has been fair ~50% of meals. No significant weight changes. Po appears to be improving further as pt consumed 75-100% of meals today. Additionally pt drinks Ensure typically BID. Documented sarcopenia. Increased protein needs have been reviewed/ encouraged with pt. Pt agreeable. RD will continue to monitor pt.
--- NOTE | 2018-06-14 15:39 | NUR ---
PT DOING WELL THIS SHIFT. PARTICIPATING IN THERAPY AND TOLERATING WELL. REPORTS NO PAIN UNLESS MOVING. REFUSES PAIN MEDICATION AT THIS TIME. ASSISTED PT TO BATHROOM REQUIRING MINIMAL ASSISTANCE. PT VOICES CONCERN THAT SHE WON'T BE ABLE TO DO THIS AT HOME. ASSURED PT ARRANGEMENT WILL BE MADE TO MAKE SURE SHE IS SAFE WHEN DISMISSED. OTHERWISE NO NEW CONCERNS AT THIS TIME.
--- NOTE | 2018-06-14 15:47 | NUR ---
FAXED CLINICAL UPDATE TO [facility]. LEFT MSG WITH THAT UPDATE HAS BEEN SENT. DCP TO FOLLOW.
[2018-06-14 19:30] VITALS: BP 122/66
--- NOTE | 2018-06-15 02:52 | NUR ---
CALLS APPROPRIATELY FOR ASSIST TO BATHROOM. MIGHT BECOME A STANDBY ASSIST IF SHE COULD EVER GET AWAY FROM HER FEAR OF FALLING, FOR NOW SHE IS CONTACT GUARD ASSIST. VERY HARD OF HEARING AND CAN ONLY HEAR STAFF WITH ASSIST OF HEADPHONES
[2018-06-15 04:47] LABS: HEMATOCRIT 32.2 % (37.0-47.0); MCH 33.7 pg (26.0-34.0); MCHC 34.1 g/dL (28.0-37.0); MCV 98.9 fL (80.0-100.0); PLATELET COUNT 447 thou/uL (150-400); RBC 3.26 mil/uL (4.20-5.00); RDW 14.4 % (10.5-14.5); WBC 6.6 thou/uL (4.0-11.0)
[2018-06-15 05:06] LABS: CALCIUM 8.5 mg/dL (8.5-10.1); CREATININE 0.9 mg/dL (0.6-1.0); MAGNESIUM 2.1 mg/dL (1.8-2.4); POTASSIUM 4.7 mmol/L (3.5-5.1)
[2018-06-15 05:32] LABS: PLATELET ESTIMATE INCREASED
[2018-06-15 07:30] VITALS: BP 127/60
--- NOTE | 2018-06-15 10:43 | NUR ---
ASSUMED CARE AT 0700. PATIENT. PATIENT IS ALERT AND ORIENTED X3. PATIENT IS VERY [place], AND FORGETFUL. PATIENT MEDEIROS'S. MANAGER USER EXPERIENCE ARE EQUAL. LUNGS ARE CLEAR. ABD IS SOFT WITH BSX4. PATIENT IS UP IN CHAIR FOR BREAKFAST. FALL AND SAFETY PROTOCOLS IN PLACE. C/O PAIN IN HER RIGHT HIP AT 0600. PATIENT WAS MEDICATED WITH PRN PAIN MED. UP TO THE BATHROOM WITH ASSIST OF 1 STAFF WITH GAIT BELT AND WALKER AND ASSIST OF 1 STAFF. WILL CONTINUE TO MONITER.
[2018-06-15 19:40] VITALS: BP 113/53
--- NOTE | 2018-06-15 23:46 | NUR ---
PT ALERT AND ORIENTED X 4, FORGETFUL. AMB TO BR WITH WALKER AND ASSIST X 1 WITH SOME DIFFICULTY. PAINFUL RIGHT HIP WITH AMBULATION. TRAMADOL GIVEN AT HS PER PT REQUEST. OPTIFOAM DRESSING C/D/I TO BACK. BED ALARM ON FOR SAFETY. PT CHECKED ON HOURLY ROUNDS.
[2018-06-16 07:53] VITALS: BP 130/54
--- NOTE | 2018-06-16 14:24 | NUR ---
ASSUMED CARE AT 0700. REPORTS SLEPT GOOD LAST NIGHT. PATIENT IS ALERT AND ORIENTED X4. PATIENT IS VERY [place], AND FORGETFUL. REASSESSMENT PER CHART. YOUTH AGENT ARE EQUAL. LUNGS ARE CLEAR. ABD IS SOFT WITH BSX4. LAST BM WAS YESTERDAY. PATIENT IS UP IN CHAIR FOR BREAKFAST. OFFERED SUPPORTIVE CARE. VSS ON RA. MEDS GIVEN ORDERED. TOOK MEDS WITHOUT DIFFICULTY. C/O INDIGESTION. NOTIFIED DR. CASTREJON AND OBTAINED ORDER FOR PRN PATRICK Q 6HR PRN. FALL AND SAFETY PROTOCOLS IN PLACE. C/O PAIN IN HER RIGHT HIP WHEN WALKING. GAVE PRN TRAMADOL PRIOR THERAPY. ABLE TO TOLERATE PAIN WELL. PT WALKS BETTER TODAY. UP TO THE BATHROOM WITH ASSIST OF 1 STAFF WITH GAIT BELT AND WALKER AND ASSIST OF 1 STAFF. HER GOALS IS TO CONTINUE TO WORK WITH THERAPISTS TO GET STRONGER BEFORE D/C HOME NEXT WEEK.WILL CONTINUE TO MONITOR.
[2018-06-16 19:10] VITALS: BP 111/51
--- NOTE | 2018-06-17 01:59 | NUR ---
assumed care at approx 1900 evening 06/16. pt lying in bed with head of bed elevated dozing off and on. pt appropriate and cooperative. pt took hs meds with no problems. pt assist up to bathroom before falling asleep. pt appears to be sleeping soundly with hourly rounding checks. bed alarm on and call light in reach. will continue to monitor.
[2018-06-17 07:15] VITALS: BP 134/69
--- NOTE | 2018-06-17 09:22 | NUR ---
ASSUMED CARE AT 0700. PATIENT IS ALERT AND ORIENTED X4. PATIENT IS [place]. PATIENT MEDEIROS'S. GANG SUPERVISOR ARE EQUAL. LUNGS ARE CLEAR. ABD IS SOFT WITH BSX.4 NO EDEMA NOTED IN LOWER EXTREMITIES. UP IN W/C FOR MEALS. FALL AND SAFETY PROTOCOLS IN PLACE. DENIES ANY PAIN AT THIS TIME. CONTINUES TO PROGRESS SLOWLY TOWARDS D/C GOALS. WILL CONTINUE TO MONITER.
[2018-06-17 20:33] VITALS: BP 113/45
--- NOTE | 2018-06-18 03:55 | NUR ---
PT AMBULATING TO BATHROOM WITH ASSIST X1 AND IS TOLERATING FAIR. TRAMADOL PROVIDING PAIN RELIEF. RESTING COMFORTABLY. NO NEEDS VOICED. CALL LIGHT WITHIN REACH. WILL CONTINUE TO PROVIDE FREQUENT OBSERVATION.
[2018-06-18 07:30] VITALS: BP 128/62
--- NOTE | 2018-06-18 07:41 | NUR ---
0745 ASSUMED CARE AT 0700. PATIENT IS ALERT AND ORIENTED X3. PATIENT IS VERY [place]. PATIENT MALA'S. PATIENT HAS RIGHT HIP FX, THAT IS NON-DISPLACED. PATIENT IS UP WITH ASSIST OF 1 STAFF AND GAIT BELT AND WALKER TO THE BATHROOM. PATIENT IS UP IN CHAIR FOR MEALS. PATIENT IS ON CALORIE COUNT. LUNGS ARE CLEAR, ABD IS SOFT WITH BSX4. FALL AND SAFETY PROTOCOLS IN PLACE. DENIES ANY PAIN AT THIS TIME. CONTINUES TO PROGRESS TOWARDS D/C GOALS. WILL CONTINUE TO MONITER.
--- NOTE | 2018-06-18 13:30 | NUR ---
ZANE RETURNED CALL TO GIUSEPPE RT VOICE MESSAGE THAT [place] IS WANTING PT TO COME BACK AL RESPECT STAY. CM LEFT MESSAGE FOR GIUSEPPE TO CALL CM TEAM BACK. MEAN WHILE VOICE MESSAGE FROM PT DAUGHTER CARMELLA WHO STATED " I WILL BE OUT OF HOSPITAL THE DAY MOM IS GOING TO BE DC WELL"/CARMELLA. WILL CONT FOLLOWING NEEDED FOR DC NEEDS.
[2018-06-18 20:45] VITALS: BP 122/59
--- NOTE | 2018-06-19 03:00 | NUR ---
assumed care at approx 1900 evening 06/18. pt sitting up in recliner at change of shift resting and talking on phone. pt assisted up to bathroom before hs. pt appropriate and cooperative, hard of hearing. pt given hs meds and appears to be sleeping soundly with hourly rounding checks. bed alarm on and call light in reach. will continue to monitor.
[2018-06-19 07:55] VITALS: BP 136/87
--- NOTE | 2018-06-19 11:01 | NUR ---
ASSUMED CARE AT APPROX 0715. PATIENT A/O X4. ANXIOUS. HARD OF HEARING. NEEDING FREQUENT VERBAL CUES, FOLLOWS COMMANDS APPROPIRATELY. MAKES NEEDS KNOWN. UP X1 ASSIST GB AND WALKER TO BATHROOM. FALL PRECAUTIONS IN PLACE. PT COMPLAINED OF DIZZINESS, MECLIZINE PRN GIVEN. VSS. PATIENT UP TO CHAIR FOR MEALS. WILL CONTINUE TO MONITOR.
[2018-06-19 19:19] VITALS: BP 101/53
--- NOTE | 2018-06-20 00:24 | NUR ---
PT ALERT AND ORIENTED X 4. PT DENIES PAIN OR DISCOMFORT. XANAX GIVEN AT HS PER PT REQUEST. BED ALARM ON FOR SAFETY. PT APPEARS TO BE SLEEPING ON HOURLY ROUNDS.
[2018-06-20 07:20] VITALS: BP 143/68
--- NOTE | 2018-06-20 10:32 | NUR ---
ASSUMED CARE AT APPROX 0715. PATIENT A/O X4. [place]. ANXIOUS, XANAX GIVEN PER ORDERS. VSS. PATIENT DENIES DIZZINESS THIS AM, DENIES PAIN DENIES PAIN AT THIS TIME. WILL CONTINUE TO REASSESS WITH THERAPY. PATIENT UP X1 ASSIST GB AND WALKER SBA. ANTICIPATED D/C DATE IS THURSDAY 06/22. FALL PRECAUTIONS IN PLACE. PATIENT ROUNDED ON HOURLY. WILL CONTINUE TO MONITOR.
--- NOTE | 2018-06-20 14:40 | NUR ---
Patient participated in community reintegration on 06/20/18 with Physical Therapy. Refer to documentation by PT.
--- NOTE | 2018-06-20 15:05 | NUR ---
CM RECEIVED PHONE CALL FROM GIUSEPPE ARCE WHO STATED "GOING TO HAVE NURSE COME AND EVAL DEWAYNE BUT HER DAUGHTER CALLED AND LEFT MESSAGE THAT SHE IS IN HOSPITAL SO DEWAYNE WILL NEED TO COME BACK INTO ASSISTED LIVING RESPECT STAY"/GIUSEPPE. REF IMPORTANCE OF HAVING NURSE COME FOR EVAL TODAY RT TEAM MEETING IS TOMORROW, SO COULD DISCUSS CHANGES NEEDED TO MEET DEWAYNE NEEDS. " WILL TRY TO HAVE NURSE COME TODAY"/ GIUSEPPE. CM PASSED ON INFORMATION TO 5N TEAM.
[2018-06-20 19:08] VITALS: BP 117/54
--- NOTE | 2018-06-21 01:05 | NUR ---
PT ALERT AND ORIENTED X 4, FORGETFUL. BP 117/54 AT HS. METOPROLOL HELD PER PARAMETERS. PT DENIES PAIN OR DISCOMFORT. XANAX GIVEN AT HS PER PT REQUEST FOR ANXIETY. BED ALARM ON FOR SAFETY. PT APPEARS TO BE SLEEPING ON HOURLY ROUNDS.
[2018-06-21 07:25] VITALS: BP 134/59
--- NOTE | 2018-06-21 08:57 | NUR ---
ASSUMED CARE AT 0700. PATIENT IS ALERT AND ORIENTED X4. PATIENT IS VERY [place]. PATIENT MEDEIROS'S. PATIENT RIGHT HIP REMAINS PAINFUL WHEN SHES UP AND WALKING ON IT. LUNGS ARE CLEAR. ABD IS SOFT WITH BSX4. NO EDEMA NOTED IN L.E.'S. FALL AND SAFETY PROTOCOLS IN PLACE. PATIENT IS UP TO THE BR WITH ASSIST OF 1 STAFF AND GAIT BELT , AND WALKER. FALL AND SAFETY PROTOCOLS IN PLACE. PAIN ABOVE. CONTINUES TO PROGRESS SLOWLY TOWARDS D/C GOALS. WILL CONTINUE TO MONITER.
--- NOTE | 2018-06-21 13:15 | NUR ---
TEAM MEETING, RECOMMENDATION: KVNGP 06/22/18 ASSISTED RESPECT STAY AT [facility] PRIOR TO GOING BACK TO [facility] ( PT,OT,ST,SW). WILL NEED FWW, NOT SAFE PER THERAPY WITH 4 WHEELED WALKER. PT AGREE CONT TO AGREE WITH KVNGP,CM LEFT MESSAGE WITH DAUGHTER CARMELLA AND GIUSEPPE KLINE AT [facility]
[2018-06-21 15:23] VITALS: BP 134/59
--- NOTE | 2018-06-21 16:25 | NUR ---
DCP [facility] SPOKE WITH GIUSEPPE IN ADM. AND THEY SET UP TRANSPORT FOR 0900 06/22/18. PT. WILL DISCHARGE TO [facility]. WITH [facility]. FAXED REFERRAL TO [facility] SPOKE WITH ADM. ARCENIO AND SHE RECEIVED REFERRAL AND WILL REVIEW. DCP TO FOLLOW.
[2018-06-21 19:20] VITALS: BP 118/52
--- NOTE | 2018-06-22 03:05 | NUR ---
Assumed care of pt at 1915. Pt alert and oriented x4. Pt reports feeling anxious about discharge later today. Ambulates to bathroom with standby assist using gait belt and walker. Xanax given po at HS. Denies pain, nausea or dypsnea. Has appeared to be sleeping when checked on hourly rounds. Fall precautions in place.
[2018-06-22 07:15] VITALS: BP 117/57
[2018-06-22] MEDS ORDERED: COLACE100 MG PO (08:01)
[2018-06-22] MEDS ORDERED: ANTIVERT25 MG PO (08:01)
[2018-06-22] MEDS ORDERED: CELEXA20 MG PO (08:01)
--- NOTE | 2018-06-22 09:05 | NUR ---
ASSUMED CARES AT 0700. PT AWAKE, ALERT AND ORIENTED *4, CONFUSED AT TIMES AND TUSCARORA. C/O MILD PAIN WITH ACTIVITY 0N HIP AND THIGH RIGHT. VITALS STABLE. BP LOWERING MEDICATIONS HELD FOR SBP<130. SKIN REMAINS INTACT. 1+ BLE EDEMA, PT ENCOURAGED TO ELEVATE EXTREMITY WHEN NOT IN THERAPY. UP WITH 1 PERSON TRANSFERS AND AMBULATING TOLERATED. PT READY FOR DC TO [facility] BY 0900. CALLED AND LEFT MESSAGE FOR NURSING TO CALL FOR REPORT.
--- NOTE | 2018-06-22 09:43 | NUR ---
PT. DISCHARGING TODAY TO [facility]. FAXED DC ORDERS/SUMMARY TO FACILITY AND SPOKE WITH GIUSEPPE IN ADM. SHE RECEIVED DC ORDERS. TRANSPORTATION [facility]IA [facility] ARRANGED FOR 0900. FAMILY NOTIFIED PER SW AND UNIT NOTIFIED AND CHART COPY PER U.S. RN TO CALL REPORT TO [phone].
--- NOTE | 2018-06-22 11:52 | NUR ---
PT. DISCHARGING TODAY TO [facility]. FAXED DC ORDERS TO FACILITY AND SPOKE WITH GIUSEPPE IN ADM, AND SHE RECEIVED DC ORDERS/SUMMARY. TRANSPORTATION SET UP VIA [facility] AT 0900. FAMILY NOTIFIED PER SW AND UNIT NOTIFIED OF TIME OF TRANSPORT AND CHART COPY PER U.S. RN TO CALL REPORT TO [phone].
== END 2018-06-22 10:30 | disposition home health service (06) | DRG 536 ==
LOC: ENTRNSPT 06-22 10:03 → EDTRNSPTSTS 06-22 10:06
PROVIDERS: Nurse Practitioner; ADMIT Physical Medicine & Rehabilitation
DX: S72.144A Nondisplaced intertrochanteric fracture of right femur, initial encounter for closed fracture (principal); E87.1 Hypo-osmolality and hyponatremia; E46 Unspecified protein-calorie malnutrition; Z68.1 Body mass index [BMI] 19.9 or less, adult; N17.9 Acute kidney failure, unspecified; E03.9 Hypothyroidism, unspecified; Z60.2 Problems related to living alone; H81.10 Benign paroxysmal vertigo, unspecified ear; R35.0 Frequency of micturition; R30.0 Dysuria; I12.9 Hypertensive chronic kidney disease with stage 1 through stage 4 chronic kidney disease, or unspecified chronic kidney disease; N18.9 Chronic kidney disease, unspecified; M62.84 Sarcopenia; K21.9 Gastro-esophageal reflux disease without esophagitis; Z90.49 Acquired absence of other specified parts of digestive tract; Z88.2 Allergy status to sulfonamides; Z88.8 Allergy status to other drugs, medicaments and biological substances; Z88.1 Allergy status to other antibiotic agents; Y93.89 Activity, other specified; Y99.8 Other external cause status; F41.8 Other specified anxiety disorders; H91.93 Unspecified hearing loss, bilateral; Z98.891 History of uterine scar from previous surgery; W18.39XA Other fall on same level, initial encounter; Y93.01 Activity, walking, marching and hiking; Y92.098 Other place in other non-institutional residence as the place of occurrence of the external cause
CPT/HCPCS: 10112

== ENCOUNTER 2018-10-17 19:41 | Inpatient (IN) | payer OTHER, MEDICARE ==
[~2018-10-17] VITALS: Ht 160 cm; Wt 45.4 kg
[~2018-10-17 19:41] MED LIST changes: +ANTIVERT25 MG PO; +CELEXA20 MG PO; +COLACE100 MG PO
[2018-10-17 20:34] LABS: HEMATOCRIT 35.2 % (37.0-47.0); HEMOGLOBIN 12.2 gm/dL (12.0-15.0); MCH 34.2 pg (26.0-34.0); MCHC 34.6 g/dL (28.0-37.0); MCV 98.9 fL (80.0-100.0); RBC 3.55 mil/uL (4.20-5.00); RDW 14.5 % (10.5-14.5); WBC 9.9 thou/uL (4.0-11.0)
[2018-10-17 20:42] LABS: CALCIUM 9.1 mg/dL (8.5-10.1); POTASSIUM 4.3 mmol/L (3.5-5.1)
[2018-10-17 20:46] LABS: APTT 22.7 Seconds (24.5-32.8)
[2018-10-17 22:00] VITALS: BP 160/78
[2018-10-17 22:15] VITALS: BP 137/63
--- NOTE | 2018-10-17 22:16 | NUR ---
REPORT RECEIVED FROM MALIKA OTT FROM ED, PER REPORT PT VERY CONFUSED, DOUGLAS, UNABLE TO FIND HOME MED LIST. DR. VEGA WAS ALREADY NOTIFIED IN ED AT 2126.
--- NOTE | 2018-10-18 00:37 | NUR ---
PT WAS AND ADMIT FROM THE ED. ARRIVED ON THE FLOOR VIA CART, SCREAMED WHEN TRANSFERED TO THE BED. GUARDING LEFT LEG, ABLE TO PUT IN SCDS SLEEVE, ATTEMPTED TO PUT FRACTURE BEDPAN BUT IS IN SO MUCH PAIN, GOT ORDER FOR ISIDRO CATH, INSERTED AND DRAINING TO YELLOW URINE. ON ROOM AIR, TOOK MEDS WITH NO DIFFICULTY. EXTREMELY HARD OF HEARING, DAUGHTER WHICH IS THE DPOA IN THE ROOM AND IS SPENDING THE NIGHT. SHE SAID PT HAS HEARING AID BUT EVEN WITH IT PT STILL VERY HARD OF HEARING. BED ALARM ON, NPO FOR POSSIBLE SURGERY, SKIN INTACT, MONITORED.
[2018-10-18 02:00] VITALS: BP 142/66
--- NOTE | 2018-10-18 03:37 | NUR ---
RESTING GOOD, PAIN CONTROLED BY FENT 50 MCG IV NEEDED, ISIDRO PATENT DRAINING TO MATEUSZ URINE, NPO FOR POSSIBLE SURGERY, SCDS ON, DAUGHTER HERE FOR THE NIGHT, HOURLY ROUNDING, MONITORED.
[2018-10-18 05:29] VITALS: BP 133/67
--- NOTE | 2018-10-18 07:20 | EKG ---
[address] [address] ELECTROCARDIOGRAM REPORT Name: JUAN SHRESTHA Room #: 430-P [facility] IN .R.#: [id number] ������������������ Admission: 10/17/18 ������������������ Attend Phys: Maritza Earl Discharge: ������������������ Date of : 31 Report #: [id number] ����������������������������������������������������������������� [id number] THIS REPORT FOR: //name// [facility] ED Test Date: 2018-10-17 Test Time: 19:54:28 Pat Name: JUAN SHRESTHA Department: Room: 430 Gender: F Purchaser: paul : 1935 Requested By: René Monroy Order Number: [id number] MD: Carlos Roberts Measurements Intervals Curtice Rate: 82 P: 47 VA: 155 QRS: 17 QRSD: 82 T: 43 QT: 413 QTc: 483 Interpretive Statements Sinus rhythm Normal tracing Compared to ECG 06/02/2018 23:26:33 No significant changes Electronically Signed On 10-18-2018 7:20:48 CDT by Carlos Roberts [email or web address] ��������������������������������������������� <ELECTRONICALLY SIGNED> ���������������������������������������� By: Carlos Roberts MD, [facility] ��������������������������������������������� 10/18/18 07 53 53 Carlos Roberts MD, FACC /EPI
[2018-10-18 07:57] VITALS: BP 120/58
--- NOTE | 2018-10-18 11:17 | NUR ---
Nutrition: pt seen due to low BMI 17.7. Admit with Left hip fracture pending surgery. Dtr reports current wt of 100# is error and pt has been weighing 112# recently at dr office. Re-weighed at 118#. UBW range 100-110# and pt with recent gain. Usual appetite is good, eats 3 meals/day. Has drank ensure in the past. Will follow for diet advance post surgery. Consider low risk.
--- NOTE | 2018-10-18 13:01 | NUR ---
REPORT GIVEN TO SENIOR SUITES NURSE, PATIENT MOVING TO ROOM 227. ALL BELONGINGS PACKED AND SENT WITH PATIENT.
--- NOTE | 2018-10-18 13:18 | NUR ---
CALLED CONSULT TO 5TH FLOOR / DR MEDINA AT THIS TIME.
[2018-10-18 16:56] VITALS: BP 118/53
--- NOTE | 2018-10-18 17:20 | NUR ---
PT ARRIVED BACK FROM SURGERY AT 1638 ALERT XS 2 WITH SOME CONFUSION. LUNGS CTA O2 SAT =95% 2L/NC VS= 97.7 16 77 118/58. FAMILY AT BEDSIDE. PT TO HAVE REGULAR DIET. D51/2 NS AT 100/HR. PT HAD NAILING LEFT HIP 3 SITES WITH DRESSINGS INTACT
[2018-10-18 20:14] VITALS: BP 117/59
--- NOTE | 2018-10-19 04:29 | NUR ---
Assumed care of pt at 1900. Pt a&ox2. Very forgetful and very e[place]. Prn pain meds administered. IV antibiots administered. Dressing on left hip clean and intact. SCD's in place. Fall precautions in place. Will continue to monitor.
[2018-10-19 04:55] LABS: CALCIUM 7.5 mg/dL (8.5-10.1); CREATININE 1.1 mg/dL (0.6-1.0); POTASSIUM 5.1 mmol/L (3.5-5.1)
[2018-10-19 06:04] LABS: HEMATOCRIT 22.2 % (37.0-47.0); MCH 35.6 pg (26.0-34.0); MCHC 35.4 g/dL (28.0-37.0); MCV 100.4 fL (80.0-100.0); RBC 2.21 mil/uL (4.20-5.00); RDW 14.3 % (10.5-14.5); WBC 9.5 thou/uL (4.0-11.0)
[2018-10-19 06:10] LABS: HEMOGLOBIN 7.9 gm/dL (12.0-15.0)
[2018-10-19 06:24] VITALS: BP 117/59
[2018-10-19 08:20] VITALS: BP 98/54
--- NOTE | 2018-10-19 10:29 | NUR ---
Assumed pt care at 7am.Pt in bed resting without c/o.Assessment completed.vss. Pt was very hard of hearing.Wanted lip balm,one given per pt request.Pt tolerated breakfast and pain med given prior to therapy.Will continue to monitor.
--- NOTE | 2018-10-19 15:15 | NUR ---
INITIAL ASSESSMENT: Pt evaluated for d/c planning needs. Reviewed chart and spoke with nurse, pt and pt's daughter. Pt is very [place]. Dtr said that pt is not a candidate for hearing aids and that she would only be helped with cochlear implants. Pt is a [facility] resident [facility]. Pt uses walker for ambulation and has had [facility] in the past. Pt has been accepted to [facility], with possible admission on Monday. Spoke with dtr. If pt does not go to [facility], daughter would want pt to go to [facility]. Will remain available to assist as needed.
--- NOTE | 2018-10-19 16:27 | NUR ---
PATIENT WAS SEEN THIS DATE BY SHO LEAL NP WITH DR. MEDINA. PATIENT WAS ASSESSED AND IS APPROPRIATE FOR [facility]. PATIENT CAN ADMIT TO REHAB WHEM MEDICALLY STABLE. ANTICIPATE ADMISSION FOR OCTOBER 21 OR . WRAPPER OFF INFORMED. [facility] IS LIAISON TOP STITCHER FOR WEEKEND. IF PATIENT IS TO ADMIT TO REHAB OVER WEEKEND, PLEASE CALL [facility] AT [phone] TO FACILITATE AMISSION.
[2018-10-19 17:32] VITALS: BP 126/50
[2018-10-19 19:50] VITALS: BP 102/48
--- NOTE | 2018-10-19 22:48 | O ---
[facility] [place] [address] OPERATIVE REPORT Name: PAULJOSSIEJUAN C Room #: 430-P ADM IN M.R.#: [id number] Admission: 10/17/18 ������������������ Attend Phys: Maritza Earl Discharge: ������������������ Date of : 31 Report #: [id number] THIS REPORT FOR: //name// CC: FAM unknown Maritza Earl [facility] DATE OF SERVICE: 10/18/2018 SERVICE: Orthopedics. FACILITY: [place]. SURGEON: René Woodruff MD. HUMAN RESOURCE ADVISOR: Roxanna Avila NP. PREOPERATIVE DIAGNOSIS: Displaced left intertrochanteric hip fracture. POSTOPERATIVE DIAGNOSIS: Displaced left intertrochanteric hip fracture. PROCEDURE: Intramedullary nail fixation of left intertrochanteric hip fracture. COMPLICATIONS: None. DRAINS: None. SPECIMENS: None. ANESTHESIA: General. ESTIMATED BLOOD LOSS: 300 mL. FINDINGS: Coronado and Nephew 40 cm x 11.5 mm 130 degree InterTan nail with 95 x 90 proximal compression screws and 45 mm 5.0 distal locking screw. HISTORY AND INDICATIONS: The patient is an 83-year-old female who was ambulating without her walker, took a fall, sustained a comminuted left intertrochanteric hip fracture. She was admitted last night. It was indicated for surgical treatment. The risks, benefits, alternatives and indications for surgery were reviewed in detail with her daughter who gave full informed consent. She understood the risks are extensive up to and including mortality. PROCEDURE IN DETAIL: After left lower extremity was correctly identified as the operative extremity, the patient was taken to the operating room, and general anesthesia was induced without complication. She was transferred to the [facility] [address] [place] [address] OPERATIVE REPORT Name: JUAN SHRESTHA Barbara Room #: 430-P [facility] IN ..#: [id number] Admission: 10/17/18 ������������������ Attend Phys: Maritza Earl Discharge: ������������������ Date of : 33 Report #: [id number] operating table, padded appropriately. Prophylactic antibiotics were administered at appropriate time. She was placed in bilateral traction boots. Timeout procedure performed. The left leg was prepped and draped in standard sterile fashion. Time-out procedure was performed. Under C-arm fluoroscopy, a reduction maneuver had been performed prior to prepping and draping and placed the leg into abduction, external rotation and then placed traction across the fracture in the extremity ultimately reducing it with internal rotation and to about 30 degrees of internal rotation and abduction. This provided good cortical alignment. A 1 inch incision was made based proximal to the greater trochanter. Dissection was taken down to the trochanter and a guide pin was placed in the trochanter and then it was advanced under fluoroscopy into the proximal femur across the fracture site. Under multiple planes of fluoroscopy, the femoral cortex was then sequentially prepared and reamed up to a 13 mm reamer to allow placement of the largest diameter nail available. We had measured it to 40 cm in length. The nail was then advanced across the fracture in the appropriate position. It was confirmed to be intramedullary on multiple planes of x-ray. The outrigger was used to then place the proximal interlocking screw and set the initial position, but it looked like it was coming to high and then the pin was redirected, but it was more posterior than I would have like, so I backed it up, adjusted the nail position within the proximal femur and then advanced the guide pin into the femoral head with care taken to ensure appropriate tip apex distance. The femur was then prepared with the drills in a typical fashion and then the lag screw was placed proximally followed by the locking compression screw just distal. This provided good compression across the fracture and it appeared to improve the overall reduction. The C-arm was then oriented distally and a perfect kaltag technique was used to place the interlocking screw and then final x-rays were taken after it was confirmed that the hardware was all in appropriate position. The fracture was well aligned. The deep wounds were copiously irrigated. The skin was closed with 2-0 Vicryl and followed by skin jonatan. A sterile dressing was applied. The patient was awakened from anesthesia and taken to recovery room in stable condition. There were no complications. All counts were recorded as correct. ��������������������������������������������� <ELECTRONICALLY SIGNED> ���������������������������������������� By: René Woodruff MD ��������������������������������������������� 10/19/18 2248 [id number] René Woodruff MD /nt
[2018-10-20 04:37] VITALS: BP 106/46
[2018-10-20 05:07] LABS: MCH 34.7 pg (26.0-34.0); MCHC 34.7 g/dL (28.0-37.0); MCV 99.9 fL (80.0-100.0); RBC 1.93 mil/uL (4.20-5.00); RDW 14.7 % (10.5-14.5)
[2018-10-20 05:20] LABS: HEMATOCRIT 19.3 % (37.0-47.0); HEMOGLOBIN 6.7 gm/dL (12.0-15.0)
[2018-10-20 08:27] VITALS: BP 112/45
[2018-10-20 11:14] VITALS: BP 107/47; BP 115/50
--- NOTE | 2018-10-20 11:23 | NUR ---
RECEIVED PT APPROC 0700. AWAKE RESTING IN BED. VERY ANXIOUS THIS AM ABOUT GETTING BLOOD. C/O PAIN MANAGED BY MEDS ORDERED. NO NV. SANNA TO MARTÍN. DRESSING CDI. TRANSFUFING 1 UNIT OF BLOOD AT THIS TIME. PT TOLERATING WELL. WILL CONT. TO MONITOR.
[2018-10-20 16:53] VITALS: BP 106/49
[2018-10-20 19:11] LABS: HEMATOCRIT 23.8 % (37.0-47.0); HEMOGLOBIN 8.3 gm/dL (12.0-15.0)
[2018-10-20 20:05] VITALS: BP 112/50
--- NOTE | 2018-10-21 03:08 | NUR ---
Assumed care of pt at 1900. Pt anxious and very hard of hearing. Dressing on left hip clean and intact. Dee catheter in place. Prn pain meds administered. Fall precautions in place. Will continue to monitor.
[2018-10-21 04:24] LABS: HEMATOCRIT 21.3 % (37.0-47.0); HEMOGLOBIN 7.4 gm/dL (12.0-15.0); MCH 33.4 pg (26.0-34.0); MCHC 34.6 g/dL (28.0-37.0); MCV 96.4 fL (80.0-100.0); RBC 2.21 mil/uL (4.20-5.00); RDW 16.2 % (10.5-14.5); WBC 8.6 thou/uL (4.0-11.0)
[2018-10-21 05:45] VITALS: BP 112/52
[2018-10-21 07:47] VITALS: BP 105/44
[2018-10-21] MEDS ORDERED: CYCLOBENZAPRINE5 MG PO (10:41)
[2018-10-21] MEDS ORDERED: XARELTO10 MG PO (10:42)
[2018-10-21] MEDS ORDERED: HYDROCODONE-AP1 EAC6 PO (10:43)
--- NOTE | 2018-10-21 11:27 | NUR ---
ASSESMENT COMPLETED. VSS. PT CALM THIS AM. NO NOTED SOA. NO NV. PT RESTING IN BED APPEARS COMFORTABLE. DC ORDERS RECEIVED. LEFT MESSAGE TO DTR TO UPDATE. FALL PREC. INTACT. WILL CONT. TO MONITOR.
[2018-10-21 15:24] VITALS: BP 110/52
== END 2018-10-21 16:47 | DRG 481 ==
LOC: ER 19:41 → 4E 21:05 → EROBS 21:05 → 4E 22:20
PROVIDERS: Emergency Medicine; Orthopaedic Surgery Sports Medicine; ADMIT Hospitalist
PROC: 0QS706Z Reposition Left Upper Femur with Intramedullary Internal Fixation Device, Open Approach (ICD-10-PCS; principal; 2018-10-18)
PROC: 30233N1 Transfusion of Nonautologous Red Blood Cells into Peripheral Vein, Percutaneous Approach (ICD-10-PCS; 2018-10-20)
DX: S72.142A Displaced intertrochanteric fracture of left femur, initial encounter for closed fracture (principal); E87.1 Hypo-osmolality and hyponatremia; D62 Acute posthemorrhagic anemia; H91.90 Unspecified hearing loss, unspecified ear; I10 Essential (primary) hypertension; K21.9 Gastro-esophageal reflux disease without esophagitis; E03.9 Hypothyroidism, unspecified; H81.10 Benign paroxysmal vertigo, unspecified ear; F03.90 Unspecified dementia, unspecified severity, without behavioral disturbance, psychotic disturbance, mood disturbance, and anxiety; F41.9 Anxiety disorder, unspecified; F32.9 Major depressive disorder, single episode, unspecified; W18.39XA Other fall on same level, initial encounter; R29.6 Repeated falls; Y93.89 Activity, other specified; Y92.099 Unspecified place in other non-institutional residence as the place of occurrence of the external cause; Y99.8 Other external cause status; Z87.81 Personal history of (healed) traumatic fracture; Z90.49 Acquired absence of other specified parts of digestive tract; Z98.891 History of uterine scar from previous surgery; Z79.899 Other long term (current) drug therapy; Z88.1 Allergy status to other antibiotic agents; Z88.2 Allergy status to sulfonamides; Z88.8 Allergy status to other drugs, medicaments and biological substances
CPT/HCPCS: 10084; 50010; 50101; 50386; 51412; 51538; 52304; 55445; 56525; 57092; 62110; 62900; 70005

== ENCOUNTER 2018-10-21 16:41 | Inpatient (IN) | payer OTHER, MEDICARE ==
[~2018-10-21] VITALS: Ht 160 cm; Wt 45.4 kg
[~2018-10-21 16:41] MED LIST changes: +CYCLOBENZAPRINE5 MG PO; +XARELTO10 MG PO
[2018-10-21 17:48] LABS: HEMATOCRIT 23.9 % (37.0-47.0); HEMOGLOBIN 8.3 gm/dL (12.0-15.0); MCH 33.7 pg (26.0-34.0); MCHC 34.7 g/dL (28.0-37.0); MCV 97.2 fL (80.0-100.0); RBC 2.46 mil/uL (4.20-5.00); WBC 9.5 thou/uL (4.0-11.0)
[2018-10-21 18:09] LABS: CALCIUM 8.1 mg/dL (8.5-10.1); POTASSIUM 3.8 mmol/L (3.5-5.1)
[2018-10-21 19:25] VITALS: BP 122/55
[2018-10-22 09:04] VITALS: BP 135/61
[2018-10-22 19:00] VITALS: BP 114/46
[2018-10-23 07:30] VITALS: BP 108/52
[2018-10-23 20:00] VITALS: BP 119/54
[2018-10-24 08:00] VITALS: BP 112/48
[2018-10-24 19:47] VITALS: BP 118/52
--- NOTE | 2018-10-25 08:05 | EKG ---
[address] [place] [address] ELECTROCARDIOGRAM REPORT Name: JUAN SHRESTHA Room #: 506-1 ADM IN M.R.#: [id number] ������������������ Admission: 10/21/18 ������������������ Attend Phys: Jc Bueno MD Discharge: ������������������ Date of : 33 Report #: [id number] ����������������������������������������������������������������� [id number] THIS REPORT FOR: //name// [facility] Test Date: 2018-10-24 Test Time: 21:05:21 Pat Name: JUAN SHRESTHA Department: Room: 506 1 Gender: F Director Dermatology: Jhonathan JOHNSON : 1935 Requested By: Brynana Downey Order Number: [id number] MD: Carlos Roberts Measurements Intervals [place] Rate: 78 P: 55 PA: 134 QRS: 30 QRSD: 86 T: 45 QT: 402 QTc: 458 Interpretive Statements Sinus rhythm No significant abnormality Compared to ECG 10/17/2018 19:54:28 No significant changes Electronically Signed On 10-25-2018 8:04:49 CDT by Carlos Roberts [email or web address] ��������������������������������������������� <ELECTRONICALLY SIGNED> ���������������������������������������� By: Carlos Roberts MD, [facility] ��������������������������������������������� 10/25/18803 04 04 Carlos Roberts MD, [facility] /EPI
[2018-10-25 08:14] VITALS: BP 111/45
[2018-10-25 21:05] VITALS: BP 108/50
[2018-10-26 08:14] VITALS: BP 144/58
[2018-10-26 20:05] VITALS: BP 151/68
[2018-10-27 08:46] VITALS: BP 111/43
[2018-10-27 19:30] VITALS: BP 112/45
[2018-10-28 09:48] VITALS: BP 113/48
[2018-10-28 19:50] VITALS: BP 153/74
[2018-10-29 08:30] VITALS: BP 119/63
[2018-10-29 19:50] VITALS: BP 129/87
[2018-10-30 03:02] VITALS: BP 105/51
[2018-10-30 06:23] LABS: HEMATOCRIT 24.1 % (37.0-47.0); HEMOGLOBIN 8.3 gm/dL (12.0-15.0); MCH 34.9 pg (26.0-34.0); MCHC 34.5 g/dL (28.0-37.0); MCV 101.1 fL (80.0-100.0); PLATELET COUNT 597 thou/uL (150-400); RBC 2.38 mil/uL (4.20-5.00); RDW 18.7 % (10.5-14.5); WBC 6.8 thou/uL (4.0-11.0)
[2018-10-30 06:45] LABS: CALCIUM 8.3 mg/dL (8.5-10.1); CREATININE 0.9 mg/dL (0.6-1.0); MAGNESIUM 2.1 mg/dL (1.8-2.4); POTASSIUM 3.8 mmol/L (3.5-5.1)
[2018-10-30 07:46] LABS: ABSOLUTE NEUTROPHILS 3.9 thou/uL (1.4-8.2); ATYPICAL LYMPHS 1 %; METAMYELOCYTES 2 %; MYELOCYTES 3 %
[2018-10-30 07:52] LABS: ANISOCYTOSIS 2+; MACROCYTES 1+
[2018-10-30 07:53] LABS: POLYCHROMASIA OCCASIONAL
[2018-10-30 08:11] VITALS: BP 127/73
[2018-10-30 19:50] VITALS: BP 140/73
[2018-10-31 20:05] VITALS: BP 129/71
[2018-11-01 07:45] VITALS: BP 132/73
[2018-11-01 19:13] VITALS: BP 126/56
[2018-11-02 08:10] VITALS: BP 139/61
--- NOTE | 2018-11-02 09:12 | H ---
[facility] [place] [address] HISTORY AND PHYSICAL Name: PAULJOSSIEJUAN C Room #: 506-1 ADM IN M.R.#: [id number] Admission: 10/21/18 ������������������ Attend Phys: Jc Bueno MD Discharge: ������������������ Date of : 33 Report #: [id number] THIS REPORT FOR: //name// CC: Jc Bueno Pandurang [facility] DATE OF SERVICE: 10/21/2018 HISTORY AND PHYSICAL/POSTADMISSION PHYSICIAN AND EVALUATION HISTORY OF PRESENT ILLNESS: The patient is an 83-year-old white female, originally admitted to [facility] on 10/17/2018 after a fall at her assisted living facility. She sustained a left displaced intertrochanteric hip fracture and underwent an intramedullary nail on 10/18/2018. She is allowed weightbearing as tolerated. She did have a drop in her hemoglobin to 7.9 postop. Hemoglobin was 12.2 on admission with a sodium of 129. She has been monitored regarding her anemia and her hyponatremia. She is status post transfusion. Hemoglobin had been down to 6.7 and last checked at 8.3. Sodium was 130. She has now been admitted for acute in-hospital inpatient rehabilitation. PAST MEDICAL HISTORY: Includes hypertension, hard of hearing, GERD, dizziness, hypothyroidism. PAST SURGICAL HISTORY: Cholecystectomy and . MEDICATIONS: Please see the full medication listing, this includes vitamins, herbals, and supplements per report. ALLERGIES: CLARITHROMYCIN, ERYTHROMYCIN, LISINOPRIL, AND SULFA. SOCIAL HISTORY: She utilizes a front-wheeled walker around her assisted living facility. She has an involved daughter. She needed assist with bathing and IADLs were provided, some Xanax to help control anxiety. HABITS: No history of tobacco abuse or alcohol abuse. FAMILY HISTORY: Noncontributory. REVIEW OF SYSTEMS: No fever or chills. No complaints of shortness of breath or abdominal discomfort. Some mild left hip pain as expected. PHYSICAL EXAMINATION: GENERAL: She is a pleasant, 83-year-old white female, in no obvious distress. The patient is alert. VITAL SIGNS: Last recorded temperature 98.8, pulse 96, respirations 20, blood [facility] [address] [place] [address] HISTORY AND PHYSICAL Name: JUAN SHRESTHA Room #: 506-1 [facility] IN [facility]#: [id number] Admission: 10/21/18 ������������������ Attend Phys: Jc Bueno MD Discharge: ������������������ Date of : 33 Report #: [id number] pressure 122/55. HEENT: Appeared to be benign. She is very hard of hearing. Facies are symmetric. CHEST: Sounded clear to auscultation. CARDIOVASCULAR: Regular rate and rhythm. ABDOMEN: Slender. Bowel sounds positive. Nontender. GENITOURINARY AND RECTAL: Deferred. NEUROMUSCULOSKELETAL: She has functional range of motion of both upper extremities. Arthritic changes of her hands. Strength is grade 4-/5. DTRs are trace to 1. Left lower extremity, left hip with three separate dressings. The proximal too revealed skin clips in place. There is no calf swelling. She can dorsiflex that left ankle. She has some discomfort with movement. Right lower extremity strength is probably a grade 4-/5. Tone appeared to be intact. Functionally, she is needing assistance with basic functional mobility and ADL skills. ASSESSMENT: 1. Displaced left hip intertrochanteric fracture, status post intramedullary nail on 10/18/2018, weightbearing as tolerated. 2. Acute blood loss anemia. 3. Hyponatremia. 4. Prior history of right hip fracture on 06/07/2018. 5. History of recurrent falls. 6. Benign positional vertigo. 7. There is a history of some dementia. 8. Depression and anxiety. PLAN: The patient is admitted for acute in-hospital inpatient rehabilitation. From a postadmission physician evaluation perspective, there are no relevant changes since the preadmission screening. Please see the above review of prior and current medical and functional conditions and comorbidities. Please see the patient's previous and current functional status. As far as risk of complications, the patient has multiple medical comorbidities as noted above. The initial plan of care involves the interdisciplinary acute inpatient rehabilitation program with the goal of maximizing the patient's functional independence, so that she can hopefully return back to the home setting. Measurable functional goals would be for the patient to become modified independent with transfers, mobility, and ADLs. We will have speech therapy to assist as well regarding cognition and communication issues. The goal is to get her back up ambulatory with a walker, so she can hopefully return back to the home setting. Prognosis is reasonably good with the estimated length of stay probably at least 2 weeks. Potential barriers would include her multiple medical comorbidities and decreased functional status. The patient meets diagnostic criteria for an acute in-hospital inpatient rehabilitation stay. She meets medical necessity criteria and we will have the [address] [address] HISTORY AND PHYSICAL Name: JUAN SHRESTHA Room #: 506-1 ADM IN M.R.#: [id number] Admission: 10/21/18 ������������������ Attend Phys: Jc Bueno MD Discharge: ������������������ Date of : 33 Report #: [id number] [email or web address] consultant physicians continue to follow. She does have the tolerance for therapies and has appropriate discharge goals back to the home setting. ��������������������������������������������� <ELECTRONICALLY SIGNED> ���������������������������������������� By: Jc Bueno MD ��������������������������������������������� 11/02/18 0912 0849 0907 Jc Bueno MD /nt
[2018-11-02 19:25] VITALS: BP 130/60
[2018-11-03 08:04] VITALS: BP 116/52
[2018-11-03 18:27] VITALS: BP 140/58
[2018-11-03 19:30] VITALS: BP 122/53
[2018-11-04 07:40] VITALS: BP 139/74
[2018-11-04 11:22] LABS: HEMATOCRIT 28.3 % (37.0-47.0); HEMOGLOBIN 9.4 gm/dL (12.0-15.0); MCH 34.2 pg (26.0-34.0); MCHC 33.2 g/dL (28.0-37.0); MCV 102.9 fL (80.0-100.0); RBC 2.76 mil/uL (4.20-5.00); RDW 18.9 % (10.5-14.5); WBC 5.3 thou/uL (4.0-11.0)
[2018-11-04 11:29] LABS: CALCIUM 8.2 mg/dL (8.5-10.1); CREATININE 0.9 mg/dL (0.6-1.0); POTASSIUM 4.3 mmol/L (3.5-5.1)
[2018-11-04 20:50] VITALS: BP 136/60
[2018-11-05 05:56] LABS: HEMATOCRIT 26.2 % (37.0-47.0); MCH 34.8 pg (26.0-34.0); MCHC 34.1 g/dL (28.0-37.0); MCV 102.2 fL (80.0-100.0); RBC 2.57 mil/uL (4.20-5.00); RDW 18.7 % (10.5-14.5); WBC 5.2 thou/uL (4.0-11.0)
[2018-11-05 06:07] LABS: CREATININE 0.8 mg/dL (0.6-1.0); MAGNESIUM 2.1 mg/dL (1.8-2.4); POTASSIUM 4.4 mmol/L (3.5-5.1)
[2018-11-05 08:36] VITALS: BP 137/72
[2018-11-05 22:27] VITALS: BP 150/74
[2018-11-06 07:30] VITALS: BP 127/57
[2018-11-06 19:40] VITALS: BP 143/67
[2018-11-07 07:20] VITALS: BP 127/63
[2018-11-07 19:15] VITALS: BP 140/58
[2018-11-08 07:30] VITALS: BP 143/78
[2018-11-08 21:04] VITALS: BP 141/73
[2018-11-09 07:41] VITALS: BP 132/62
[2018-11-09 15:22] VITALS: BP 132/62
[2018-11-09 21:09] VITALS: BP 137/71
[2018-11-10 08:53] VITALS: BP 115/56
[2018-11-10 20:02] VITALS: BP 124/63
[2018-11-11 07:30] VITALS: BP 134/62
[2018-11-11 20:02] VITALS: BP 127/57
[2018-11-12 07:30] VITALS: BP 131/59
[2018-11-12] MEDS ORDERED: XARELTO10 MG PO ×2 (08:13→08:45)
[2018-11-12] MEDS ORDERED: NEURONTIN 300M300 M2 PO ×2 (08:13→08:45)
[2018-11-12] MEDS ORDERED: COLACE100 MG PO ×2 (08:13→08:45)
[2018-11-12] MEDS ORDERED: CYCLOBENZAPRINE5 MG PO ×2 (08:13→08:45)
[2018-11-12 10:07] VITALS: BP 132/62
== END 2018-11-12 11:29 | disposition home health service (06) | DRG 535 ==
PROVIDERS: Internal Medicine; Nurse Practitioner Family; ADMIT Physical Medicine & Rehabilitation
DX: S72.142A Displaced intertrochanteric fracture of left femur, initial encounter for closed fracture (principal); G93.41 Metabolic encephalopathy; D62 Acute posthemorrhagic anemia; E87.1 Hypo-osmolality and hyponatremia; W18.39XA Other fall on same level, initial encounter; R29.6 Repeated falls; H81.10 Benign paroxysmal vertigo, unspecified ear; I10 Essential (primary) hypertension; H91.90 Unspecified hearing loss, unspecified ear; K21.9 Gastro-esophageal reflux disease without esophagitis; E03.9 Hypothyroidism, unspecified; F01.50 Vascular dementia, unspecified severity, without behavioral disturbance, psychotic disturbance, mood disturbance, and anxiety; F41.1 Generalized anxiety disorder; F32.9 Major depressive disorder, single episode, unspecified; R26.9 Unspecified abnormalities of gait and mobility; Y93.89 Activity, other specified; Y92.89 Other specified places as the place of occurrence of the external cause; Y99.8 Other external cause status; Z90.49 Acquired absence of other specified parts of digestive tract; Z98.891 History of uterine scar from previous surgery; Z88.8 Allergy status to other drugs, medicaments and biological substances; Z88.1 Allergy status to other antibiotic agents; Z88.2 Allergy status to sulfonamides
CPT/HCPCS: 10112

== ENCOUNTER 2020-04-17 22:28 | Emergency (ER) | payer OTHER, MEDICARE ==
[~2020-04-17] VITALS: Ht 167.6 cm; Wt 49.9 kg
[~2020-04-17 22:28] MED LIST changes: +NEURONTIN 300M300 M2 PO
[2020-04-17] MEDS ORDERED: BUSPIRONE HCL5 MG PO (23:11)
[2020-04-17] MEDS ORDERED: IMODIUM A-D2 M1 PO (23:12)
[2020-04-17] MEDS ORDERED: MIRALAX119 GM PO (23:13)
[2020-04-17] MEDS ORDERED: SUPER THERAVIT1 EACH PO (23:14)
[2020-04-17] MEDS ORDERED: REFRESH TEARS15 ML EA. EYE (23:15)
[2020-04-17] MEDS ORDERED: SODIUM CHLORIDE PO (23:17)
[2020-04-17] MEDS ORDERED: TRAMADOL 50 MG50 MG PO (23:18)
[2020-04-17] MEDS ORDERED: XANAX 0.5 MG0.5 M1 PO (23:19)
[2020-04-18 02:50] VITALS: BP 131/54
== END 2020-04-18 01:55 | disposition home or self-care (01) ==
LOC: ER 22:28
DX: S00.83XA Contusion of other part of head, initial encounter (principal); H91.90 Unspecified hearing loss, unspecified ear; K21.9 Gastro-esophageal reflux disease without esophagitis; I10 Essential (primary) hypertension; E03.9 Hypothyroidism, unspecified; Z90.49 Acquired absence of other specified parts of digestive tract; Z79.899 Other long term (current) drug therapy; Z88.1 Allergy status to other antibiotic agents; Z88.8 Allergy status to other drugs, medicaments and biological substances; Z88.2 Allergy status to sulfonamides; W19.XXXA Unspecified fall, initial encounter; Y93.89 Activity, other specified; Y92.89 Other specified places as the place of occurrence of the external cause; Y99.8 Other external cause status